=== PATIENT | female | born 1965 | race African-American/Black ===

== ENCOUNTER 2024-08-26 20:33 | Emergency (ER) | payer SELFPAY ==
[~2024-08-26] VITALS: Ht 165.1 cm; Wt 100.0 kg
[2024-08-26 20:42] VITALS: BP_DIAS 71; O2SAT 100
[2024-08-26 22:11] LABS: BASOPHILS % 1.1 % (0.0-2.0); EOSINOPHILS % 3.6 % (0.0-5.0); HEMATOCRIT. 41.2 % (36.0-48.0); HEMOGLOBIN. 13.2 g/dL (12.0-16.0); LYMPHOCYTES % 41.3 % (20.0-50.0); MEAN CORPUSCULAR HEMOGLOBIN 29.4 pg (28.0-32.0); MEAN CORPUSCULAR HGB CONC 32.1 g/dL (31.0-37.0); MEAN CORPUSCULAR VOLUME 91.7 fL (81.0-99.0); MEAN PLATELET VOLUME 8.6 fl (7.4-10.4); MONOCYTES % 5.9 % (2.0-8.0); NEUTROPHILS % 48.1 % (40.0-76.0); PLATELET 328 x1000/uL (130-400); RED CELL DISTRIBUTION WIDTH 14.8 % (11.6-14.6); WHITE BLOOD COUNT 6.2 x1000/uL (4.5-11.0)
[2024-08-26 22:57] VITALS: BP_SYST 76; PULSE 78; RESP 18; TEMP 36.6; O2SAT 97
== END 2024-08-26 22:59 | disposition home or self-care (01) ==
LOC: ER 20:33
DX: K64.8 Other hemorrhoids (principal); K62.5 Hemorrhage of anus and rectum; I10 Essential (primary) hypertension; E03.9 Hypothyroidism, unspecified
CPT/HCPCS: 36415; 85025; 86850; 86900; 99283